=== PATIENT | male | born 1960 | race Caucasian/White ===

== ENCOUNTER 2018-05-13 06:04 | Day surgery (SDC) | payer OTHER ==
[~2018-05-13 06:04] MED LIST: CEFAZOLIN 2 GM/50 ML (PMX) 50 ML IVPB
[2018-05-13] MEDS: SOD CHLORIDE 0.9% 1,000 ML IV (06:38)
[2018-05-13] MEDS ORDERED: PROPOFOL 20 ML (07:54)
[2018-05-13] MEDS ORDERED: ROCURONIUM 50 MG INJ (07:54)
[2018-05-13] MEDS: BUPIVACAINE 0.25% (MPF) 30 ML INJ (08:32)
[2018-05-13] MEDS ORDERED: CEFAZOLIN 1 GM INJ (08:50)
[2018-05-13] MEDS: HYDROCODONE/APAP (5/325) TAB PO (09:27)
[2018-05-13] MEDS ORDERED: HYDROmorphONE 1 MG/5 ML IV SYRINGE IV ×3 (09:30)
[2018-05-13] MEDS ORDERED: MEPERIDINE 25 MG INJ IV (09:30)
[2018-05-13] MEDS ORDERED: ONDANSETRON 4 MG INJ IV (09:30)
[2018-05-13] MEDS ORDERED: OXYCODONE/ACETAMINOPHEN (5/325) TAB PO ×2 (09:30)
[2018-05-13] MEDS ORDERED: EPHEDrine SULFATE 50 MG/5 ML SYG IV (09:30)
[2018-05-13] MEDS ORDERED: hydrALAzine 20 MG INJ IV (09:30)
[2018-05-13] MEDS ORDERED: LABETALOL HCL 20MG INJ IV (09:30)
[2018-05-13] MEDS ORDERED: ALBUTEROL 0.083% (NEB) 2.5 MG/3 ML AMP HHN (09:30)
[2018-05-13] MEDS ORDERED: FENTAnyl 50 MCG/ML VIAL IV ×3 (09:30)
[2018-05-13] MEDS ORDERED: KETOROLAC 30 MG INJ IV (09:30)
== END 2018-05-13 10:45 | disposition home or self-care (01) ==
LOC: SDS 06:04
DX: D17.1 Benign lipomatous neoplasm of skin and subcutaneous tissue of trunk (principal); L72.0 Epidermal cyst
CPT/HCPCS: 14001; 88307

== ENCOUNTER 2018-06-06 07:33 | Day surgery (SDC) | payer OTHER ==
[2018-06-06] MEDS ORDERED: PROPOFOL 20 ML (10:15)
== END 2018-06-06 10:39 | disposition home or self-care (01) ==
LOC: GIL 07:33
DX: Z12.11 Encounter for screening for malignant neoplasm of colon (principal); K64.8 Other hemorrhoids
CPT/HCPCS: 45378